=== PATIENT | male | born 1945 | race African-American/Black ===

== ENCOUNTER → 2016-11-11 | Outpatient (CLI) | payer BC | END | disposition home or self-care (01) | LOC: PCVCIMAG 14:36 | PROVIDERS: ATTEND Internal Medicine | DX: I42.9 Cardiomyopathy, unspecified (principal); J44.9 Chronic obstructive pulmonary disease, unspecified; Z95.0 Presence of cardiac pacemaker | CPT/HCPCS: 93306 ==

== ENCOUNTER → 2017-04-21 | Outpatient (CLI) | payer BC | END | disposition home or self-care (01) | LOC: PCVCCLINIC 10:00 | PROVIDERS: ATTEND Internal Medicine | DX: I11.0 Hypertensive heart disease with heart failure (principal); I50.42 Chronic combined systolic (congestive) and diastolic (congestive) heart failure; I42.9 Cardiomyopathy, unspecified; E78.5 Hyperlipidemia, unspecified; E11.9 Type 2 diabetes mellitus without complications; J44.9 Chronic obstructive pulmonary disease, unspecified; I73.9 Peripheral vascular disease, unspecified; I51.7 Cardiomegaly; Z95.810 Presence of automatic (implantable) cardiac defibrillator; Z79.82 Long term (current) use of aspirin; Z79.84 Long term (current) use of oral hypoglycemic drugs; Z79.899 Other long term (current) drug therapy; Z87.891 Personal history of nicotine dependence | CPT/HCPCS: 80061; 93005; G0463 ==

== ENCOUNTER → 2019-05-15 | Outpatient (CLI) | payer BC, MEDICARE ==
--- NOTE | 2019-05-15 11:42 | PCVCIMAG ---
APPROVED REPORT Study performed: 05/15/2019 10:03:11 EXAM: Comprehensive 2D, Doppler, and color-flow Echocardiogram Patient Location: Echo lab Status: routine BSA: 2.02 HR: 62 bpmBP: 140/80 mmHg Rhythm: NSR Other Information Study Quality: Adequate Risk Factors: Cardiac Risk Factors: HTN, Hyperlipidemia, DM Indications Cardiomyopathy AICD, COPD 2D Dimensions IVSd: 9.58 (7-11mm)LVOT Diam: 26.67 (18-24mm) LVDd: 57.41 mm PWd: 10.12 (7-11mm)Ascending Ao: 34.88 (22-36mm) LVDs: 46.59 (25-40mm) Left Atrium: 45.81 (27-40mm) Aortic Root: 31.56 mm LV Single Plane 4CH: 23.31 % LV Single Plane 2CH: 21.01 % Biplane EF: 23.8 % Volumes Left Atrial Volume (Systole) Single Plane 4CH: 89.48 mLSingle Plane 2CH: 100.09 mL LA ESV Index: 49.00 mL/m2 Aortic Valve LVOT Max P.53 mmHg LVOT Max V: 0.80 m/s Mitral Valve E/A Ratio: 1.1 MV Decel. Time: 154.19 ms MV E Max Bib.: 0.90 m/s MV A Bib.: 0.85 m/s Pulmonary Valve PV Peak Gr.: 2.02 mmHg Tricuspid Valve TR Peak Bib.: 3.49 m/s TR Peak Gr.: 48.70 mmHg Left Ventricle Left ventricle is mildly dilated. There is global hypokinesis of the left ventricle. There is normal left ventricular wall thickness. Left ventricular ejection fraction is severely decreased. LVEF is 20-25%. This study is not technically sufficient to allow evaluation of the LV diastolic function. Right Ventricle The right ventricle is normal size. The right ventricular systolic function is normal. Device lead is present in the right ventricle. Atria Left atrium is severely dilated. Pacemaker lead is present in the right atrium. Aortic Valve The aortic valve is normal in structure. No aortic regurgitation is present. There is no aortic valvular stenosis. Mitral Valve The mitral valve is normal in structure. Mild mitral regurgitation. No evidence of mitral valve stenosis. Tricuspid Valve The tricuspid valve is normal in structure. Trace tricuspid regurgitation. Pulmonary artery pressure is 55mmHg. Pulmonic Valve The pulmonary valve is normal in structure. Trace to mild pulmonic regurgitation. Great Vessels The aortic root is normal in size. IVC is normal in size and collapses >50% with inspiration. Pericardium There is no pericardial effusion. <Conclusion> Left ventricular ejection fraction is severely decreased. There is global hypokinesis of the left ventricle. LVEF is 20-25%. The aortic valve is normal in structure. No aortic regurgitation or stenosis The mitral valve is normal in structure. Mild mitral regurgitation. Trace tricuspid regurgitation. Pulmonary artery pressure of 55mmHg. There is no pericardial effusion.
== END | disposition home or self-care (01) ==
LOC: PCVCIMAG 09:52
PROVIDERS: ATTEND Internal Medicine
DX: I11.0 Hypertensive heart disease with heart failure (principal); I50.42 Chronic combined systolic (congestive) and diastolic (congestive) heart failure; E78.5 Hyperlipidemia, unspecified; E11.9 Type 2 diabetes mellitus without complications; I34.0 Nonrheumatic mitral (valve) insufficiency; Z95.810 Presence of automatic (implantable) cardiac defibrillator
CPT/HCPCS: 36415; 80061; 93005; 93283; 93306; G0463